=== PATIENT | female | born 1985 | race African-American/Black ===

== ENCOUNTER 2020-06-30 07:58 | Outpatient (CLI) | payer OTHER, SELFPAY ==
--- NOTE | ~2020-06-30 | MM_ITS ---
EXAMINATION: MM screening marin BI w reyna HISTORY: Screening mammogram TECHNIQUE: Craniocaudal and mediolateral oblique 3-D tomosynthesis images were obtained and synthetic 2-D images were generated. CAD analysis was submitted and interpreted. COMPARISON: No prior mammogram is available for comparison at this institution. BREAST PARENCHYMAL COMPOSITION: There are scattered areas of fibroglandular density. FINDINGS: Benign circumscribed 7 mm opacity in the outer mid right breast, most consistent with benig n lymph node. There is no evidence of suspicious mass, calcification, or architectural distortion to suggest malignancy in either breast. There has been no suspicious interval change. IMPRESSION: 1. No mammographic evidence of malignancy. 2. Recommend routine screening mammography in one year. BI-RADS Category 2: Benign finding(s). Reviewed, dictated and finalized at location A. [employer]
== END 2020-06-30 07:59 | disposition home or self-care (01) ==
LOC: ANHIMG 08:00
PROVIDERS: PCP Internal Medicine; Visit Provider Surgery Plastic and Reconstructive Surgery
DX: Z12.31 Encounter for screening mammogram for malignant neoplasm of breast (principal)
CPT/HCPCS: 77063; 77067

== ENCOUNTER → 2020-08-30 02:12 | Outpatient (CLI) | payer OTHER, SELFPAY ==
[2020-08-30 19:19] LABS: SARS-CoV-2 RNA PCR Negative
== END ==
PROVIDERS: PCP Internal Medicine; Visit Provider Surgery Plastic and Reconstructive Surgery
DX: Z01.812 Encounter for preprocedural laboratory examination (principal); Z20.822 Contact with and (suspected) exposure to COVID-19
CPT/HCPCS: C9803; U0003; U0005

== ENCOUNTER 2020-09-02 00:31 | Day surgery (SDC) | payer OTHER, SELFPAY ==
[2020-08-24 09:29] VITALS: BMI 36.8
[2020-09-02] VITALS (9 sets, daily range): BP systolic 119–149; BP diastolic 70–90; PULSE 64–106; RESP 17–19; TEMP 36.2–36.7; O2SAT 96–100; BMI 37.0
[2020-09-02] MEDS: LACTATED RINGERS 1,000 ML 30 ML IV CONT ×2 (06:38→10:22)
[2020-09-02 06:44] LABS: Urine Cotinine NEGATIVE
--- NOTE | 2020-09-02 06:56 | WPDHPUPDATE1 ---
History and Physical Update Update Date/Time: 09/02/20 06:56 History and Physical has been reviewed, including an updated exam of the patient. There are NO changes in the patient's condition. Risks, benefits, and alternatives have been discussed and questions answered. Patient agrees to proceed with procedure.
--- NOTE | 2020-09-02 07:13 | PM.PROC ---
Procedure Note - Detailed Date of procedure: 09/02/20 Pre-op diagnosis: Macromastia Post-op diagnosis: same Procedure performed: Bilateral Reduction Mammaplasty Description of procedure: She is here today for bilateral breast reduction. Previously and again today the risks, benefits, alternatives were discussed in extensive detail. I wanted her to be very realistic about the risks involved as well as expectations. We discussed aftercare and what to monitor for. She understands we can never guarantee final breast size and there will always be asymmetry. I was very upfront and honest about the risks of sensation change and even nipple loss (). Made sure answered all of her questions to her satisfaction today and consent was obtained. She was marked in the preoperative holding area with their verification. The patient was taken to the operating room placed supine on the operating table. Anesthesia was provided by anesthesiology. She was prepped and draped in a standard sterile fashion. A surgical time-out was taken. Stab incisions were made and I tumessed with a tumescent solution. I marked out the nipple-areolar complex at 42 mm. This was excised just deep to the dermis and maintained in moist gauze. I then removed the inferior portion of the breast as well as the central keel to get shape based on preoperative planning. At this point copiously irrigated with saline solution and verified a strict hemostasis. I reapproximated the pillars using a 2-0 PDS as well as along the IMF. I tailor tacked the breast into place with jenny. She was placed in a sitting position. I verified the nipple-areolar complex position based on preoperative markings, intraoperative measurements, and observation which were in full agreement. There was a contour difference between sides which was adjusted with a 4mm basket canula using a modification of S.A.F.E. technique. This nipple-areolar complex was marked at 42 mm in size. I then placed supine and de-epithelialized this. A free nipple graft was defatted on the back table and sutured into place with 5-0 Chromic. A tie over bolster was created with xeroform and wet cotton, sutured into place with 3-0 Nylon. I closed the vertical incision with 3-0 Monocryl in the IMF with 3-0 stratafix. Then everything was closed using a running subcuticular 4-0 Monocryl followed by Steri-Strips. A dressing was placed followed by surgical bra. Patient was awoke and taken to PACU without difficulty. All instrument sponge counts were correct at the end of the case. Anesthesia: GLMA Surgeon: Jose Raul Jaramillo MD Estimated blood loss (mL): 30 Drains: No Packing: No Pathology: yes Complications: No immediate complications Condition: stable Disposition: PACU Findings: Inverted T Free Nipple graft Tissue removed: Right - 1511 grams Left - 1454 grams
--- NOTE | 2020-09-02 07:18 | WPDANESEPPF ---
Anes - Initial Pre Proc Eval Procedure: Operation Date: 09/02/20 07:30 Proposed Procedures p Bilateral Reduction Mammoplasty - Jose Raul Jaramillo MD Date/Time: 09/02/20 07:18 Surgeon: Jose Raul Jaramillo MD Pre Op Diagnosis: Macromastia Patient Data Age: 34 Gender: F Height: 5 ft 4 in Weight: 97.9 kg Last Vital Signs Temp 98.1 F 09/02/20 06:36 Pulse 71 09/02/20 06:36 Resp 18 09/02/20 06:36 BP 134/86 09/02/20 06:36 Pulse Ox 100 09/02/20 06:36 Allergies Allergy/AdvReac Type Severity Reaction Status Date / Time No Known Allergies Allergy Verified 09/02/20 06:22 Home Medications Medication Instructions Recorded Confirmed Type hydrocodone 5 mg-acetaminophen 325 1 tablet PO Q6H PRN #15 tablet 08/18/20 08/24/20 Rx mg tablet metformin 500 mg tablet 500 mg PO BID tablet 08/18/20 09/02/20 History ondansetron HCl 4 mg tablet 4 mg PO Q6H PRN #30 tablet 08/18/20 08/24/20 Rx metformin 500 mg PO BID 08/24/20 09/02/20 History multivitamin [One A Day] 1 tablet PO DAILY 08/24/20 09/02/20 History Laboratory Tests 09/02/20 06:20 Cotinine Negative Patient hx anesthesia problems: none Family hx anesthesia problems: none PMFSH Past Medical History Medical History (Updated 09/02/20 @ 07:15 by Andrew Segura MD) PCOS (polycystic ovarian syndrome) Social History Social History Smoking status: Never smoker Alcohol intake: never Drinks per week: 3 Substance use: never Substance use type: does not use Living arrangements: alone Spiritual care concerns: No Anes - Eval Final PreProcedure Day of Procedure 09/02/20 07:18 Patient weight: obese Heart: regular rate and rhythm Lungs: clear to auscultation Airway: Mallampati scale class II Neurological: alert and oriented Last oral intake: >/= 8 hours ASA classification: II Emergent: no Anesthetic plan: proceed Anesthesia type and monitoring: general LMA and standard monitoring Informed Consent: The patient's anesthetic plan and its attendant risks and benefits were discussed with the patient/family/POA. Questions were solicited and answers provided to the satisfaction of the patient/family/POA.
[2020-09-02] MEDS: ceFAZolin 2 GM/D5W 50 ML 2 GM/50 ML BAG IVPB (07:25)
[2020-09-02] MEDS: LACTATED RINGERS IRRIG 1,000 ML, LIDOCAINE HCL 1% LOCAL INJ 50 ML, EPINEPHrine HCL INJ ... INFILTRATE (07:52)
[2020-09-02] MEDS: oxyCODONE HCL (*CRX) 5 MG TAB IR PO (12:10)
== END 2020-09-02 13:09 | disposition home or self-care (01) ==
PROVIDERS: PCP Internal Medicine; Visit Provider Surgery Plastic and Reconstructive Surgery
PROC: 0HBV0ZZ Excision of Bilateral Breast, Open Approach (ICD-10-PCS; CPT 19318; principal; 2020-09-02 07:30)
DX: N62 Hypertrophy of breast (principal); N60.31 Fibrosclerosis of right breast; N60.42 Mammary duct ectasia of left breast; E28.2 Polycystic ovarian syndrome; Z79.899 Other long term (current) drug therapy; E66.9 Obesity, unspecified; Z68.37 Body mass index [BMI] 37.0-37.9, adult
CPT/HCPCS: 19318; 80307; 88305; A9270; C9803; J0171; J0690; J1100; J1170; J2250; J2405; J2704; J3010; J7120; U0003; U0005